=== PATIENT | male | born 1990 ===

== ENCOUNTER 2016-12-22 12:50 | Emergency (ER) | payer BC ==
[2016-12-22 12:54] VITALS: TEMP 98.4; BMI 29.5
[2016-12-22] MEDS ORDERED: SODIUM CHLORIDE 1,000 ML IV ONE (14:15)
[2016-12-22] MEDS ORDERED: SODIUM CHLORIDE 2,000 ML IV ONE (14:28)
[2016-12-22] MEDS ORDERED: KETOROLAC TROMETHAMINE 30 MG/1 ML VIAL IVPUSH ONE (14:28)
[2016-12-22] MEDS ORDERED: INSULIN REGULAR HUMAN 100 UNITS/ML *VIAL SQ ONE (14:28)
[2016-12-22] MEDS ORDERED: KETOROLAC TROMETHAMINE 30 MG/1 ML VIAL ONE (14:51)
--- NOTE | 2016-12-22 14:51 | PDOC ---
History of Present Illness - General History Source: Patient Exam Limitations: No Limitations - History of Present Illness Initial Comments: 12/22/16 14:51 The patient is a 26 year old male, with a significant past medical history of diabetes, who presents to the emergency department with blood sugar elevations and seizure. The patient reports his blood sugar being low this morning and according to the finance the patient had a seizure around 4 am this morning. The patient cannot remember the seizure and reports having a tingling sensation over his body, has had the chills, and sweating profusely since the onset of the seizure. He notes the seizure lasted about 30 seconds. He denies any head trauma. He notes skipping his late night snack after taking his insulin. He denies any changes in his medications. He notes his last seizure was about 15 years ago. He denies any recent fevers, chills, headache or dizziness. He denies any recent nausea, vomit, diarrhea or constipation. He denies any recent dysuria, frequency, urgency or hematuria. He arrives now with high blood sugar that he reports has been constant for the past 5 hours. Allergies: As per Nursing Notes. Past surgical history: None reported. Social History: Nonsmoker. Social EtOH use and denies drug use. <Elias Bustillo - Last Filed: 12/22/16 14:51> <Brody Giron - Last Filed: 12/22/16 16:40> - General Chief Complaint: Blood Sugar Problem Stated Complaint: SEIZURE (HIGH BLOOD SUGAR) Time Seen by Provider: 12/22/16 14:13 Past History <Elias Bustillo - Last Filed: 12/22/16 14:51> - Past Medical History Diabetes: Yes (insulin dependent) Seizures: Yes - Immunization History Immunization Up to Date: Yes - Psycho/Social/Smoking Cessation Hx Anxiety: No Suicidal Ideation: No Smoking Status: No Smoking History: Never smoked Number of Cigarettes Smoked Daily: 0 Hx Alcohol Use: Yes (SOCIAL) Drug/Substance Use Hx: No Substance Use Type: None <Brody Giron - Last Filed: 12/22/16 16:40> - Past Medical History Allergies/Adverse Reactions: Allergies Allergy/AdvReac Type Severity Reaction Status Date / Time meperidine HCl [From Demerol] Allergy Severe Difficulty Verified 12/22/16 12:54 Breathing Home Medications: Ambulatory Orders Insulin Glargine,Hum.rec.anlog [Lantus (10mL VIAL) -] 60 units SQ BID 12/22/16 Insulin Regular [Novolin R Vial -] 0 unit SQ ASDIR 12/22/16 Review of Systems - Review of Systems Constitutional: Yes: Night Sweats (months). No: Chills, Fever Respiratory: No: Cough, Shortness of Breath Cardiac (ROS): No: Chest Pain, Palpitations ABD/GI: No: Diarrhea, Vomiting : Yes: Frequency Neurological: Yes: Tingling. No: Headache All Other Systems: Reviewed and Negative <Brody Giron - Last Filed: 12/22/16 16:40> *Physical Exam - Vital Signs Last Vital Signs Temp Pulse Resp BP Pulse Ox 98.4 F 72 20 128/81 100 12/22/16 12:52 12/22/16 12:52 12/22/16 12:52 12/22/16 12:52 12/22/16 12:52 - Physical Exam Comments: 12/22/16 14:52 GENERAL: The patient is awake, alert, and fully oriented, in no acute distress. HEAD: Normal with no signs of trauma. EYES: Pupils equal, round and reactive to light, extraocular movements intact, sclera anicteric, conjunctiva clear with no pallor. ENT: Ears normal, nares patent, oropharynx clear without exudates. Moist mucous membranes. NECK: Normal range of motion, supple without lymphadenopathy, JVD, or masses. LUNGS: Breath sounds equal, clear to auscultation bilaterally. No wheeze/ crackles. HEART: Regular rate and rhythm, normal S1 and S2 without murmur or rub. ABDOMEN: Soft/nontender/nondistended. BS wnl. No guarding or rebound. No palpable masses. No hepatosplenomegaly. EXTREMITIES: Normal range of motion, no edema. No clubbing or cyanosis. No cords , erythema, or tenderness. NEURO: Mental status: The patient is alert and oriented x3. Cranial nerves: Cranial nerves II through XII are intact Motor: The upper extremities are 5 over 5 in all muscle groups. The lower extremities are 5 over 5 in all muscle groups. No pronator drift. Sensation: Sensation is intact to light touch throughout. Cerebellar: Finger-finger- nose is normal in both upper extremities. Heel-knee- quiles is normal in both lower extremities. Reflexes: 2+ and symmetric in the upper and lower extremities. Gait: Normal. Heel and toe walking are normal. Tandem gait is normal. PSYCH: Normal mood, normal affect. SKIN: Warm, Dry, normal turgor, no rashes or lesions noted. <Elias Bustillo - Last Filed: 12/22/16 14:51> - Vital Signs Last Vital Signs Temp Pulse Resp BP Pulse Ox 98.4 F 72 20 128/81 100 12/22/16 12:52 12/22/16 12:52 12/22/16 12:52 12/22/16 12:52 12/22/16 12:52 <Brody Giron - Last Filed: 12/22/16 16:40> Heart Score/ECG Review #1 ECG reviewed & interpreted by me at: 15:42 General ECG Interpretation: Sinus Rhythm (sinus arrhythmia), Normal Rate (64), Normal Intervals (qtc 416), No acute ischemic changes <Brody Giron - Last Filed: 12/22/16 16:40> ED Treatment Course - LABORATORY CBC & Chemistry Diagram: 12/22/16 14:31 12/22/16 14:31 <Brody Giron - Last Filed: 12/22/16 16:40> Medical Decision Making - Medical Decision Making 12/22/16 14:30 A portion of this note was documented by scribe services under my direction. I have reviewed the details of the note, within reason, and agree with the documentation with the following case summary and management plan written by me. 26-year-old male with history of insulin-dependent diabetes p/w hypoglycemic seizure around 4 AM in the setting of taking his usual nighttime insulin dose but skipping his pre-bedtime meal. Since then, patient took a lower than usual dose of his morning insulin and ate a normal breakfast, but notes elevated glucose in the 280 range. Complaining of general aches and paresthesias, no other focal neurological deficits, no recent fevers or chills reports months of night sweats without weight loss or weight gain. No other infectious complaints. His glucoses typically well-controlled. Vital signs normal. Ill-appearing. Neurologically intact. 26-year-old male with hypoglycemic seizure around 4 AM, now with persistently elevated glucose in the setting of self adjusting his insulin doses. No obvious infectious etiology on history or physical exam, he is otherwise well-appearing and neurologically intact. Check labs, EKG IV fluids, glucose control Reassess 12/22/16 15:46 Labs are within normal limits, no leukocytosis, glucose now down to 170, CK normal and troponin negative. Urinalysis clear. 12/22/16 15:54 Feeling much better, tolerating PO. Will complete IV fluid hydration, plan for d /c and restarting his usual regimen. <Brody Giron - Last Filed: 12/22/16 16:40> *DC/Admit/Observation/Transfer - Attestations Scribe Attestion: 12/22/16 14:52 Documentation prepared by Elias Bustillo, acting as medical psychotherapist for Brody Giron MD. <Elias Bustillo - Last Filed: 12/22/16 14:51> <Brody Giron - Last Filed: 12/22/16 16:40> Diagnosis at time of Disposition: Hypoglycemia due to insulin, Seizure - Discharge Dispostion Disposition: HOME Condition at time of disposition: Improved - Referrals Referrals: Kamran Rubalcava [Other] - Patient Instructions Printed Discharge Instructions: DI for Hypoglycemia Additional Instructions: Activity as tolerated. Stay hydrated. Blood tests today showed no acute abnormalities. As we discussed, your seizure was likely secondary to low blood sugar from skipping your nighttime snack. Restart your insulin dosing as previously prescribed, continue your usual diet plan. Continue your medications as previously prescribed by your physician. You should follow up with your casting carrier as soon as possible regarding today's emergency department visit. Return to the emergency department for any new or concerning symptoms, particularly difficult to control glucose levels, confusion or severe body aches , fevers or chills. - Post Discharge Activity Work/School Note: Back to Work, Parent(s) Back to Work Note
[2016-12-22] MEDS ORDERED: INSULIN (NOVOLOG) ASPART 100 UNITS/ML 10ML VIAL ONE (14:52)
[2016-12-22 15:19] LABS: URINE APPEARANCE CLEAR; URINE BILIRUBIN NEGATIVE (NEGATIVE); URINE BLOOD NEGATIVE (NEGATIVE); URINE COLOR LTYELLOW; URINE GLUCOSE (UA) 2+ (NEGATIVE); URINE KETONE NEGATIVE (NEGATIVE); URINE LEUK ESTERASE NEGATIVE (NEGATIVE); URINE NITRITE NEGATIVE (NEGATIVE); URINE PROTEIN NEGATIVE (NEGATIVE); URINE UROBILINOGEN NEGATIVE E.U./dl (0.2-1.0)
[2016-12-22 15:21] LABS: BASOPHIL 0.3 % (0-2.0); EOSINOPHIL 2.7 % (0-4.5); MCH 30.3 pg (25.7-33.7); MEAN PLT VOLUME 9.6 fl (7.5-11.1); NEUTROPHILS 57.2 % (42.8-82.8); PLATELET COUNT 237 K/MM3 (134-434); RDW 13.2 % (11.9-15.9); WHITE BLOOD COUNT 8.6 K/mm3 (4.0-10.0)
[2016-12-22 15:29] LABS: ALBUMIN 3.8 g/dl (3.4-5.0); ANION GAP 7 (8-16); BILIRUBIN,TOTAL 0.4 mg/dL (0.2-1.0); CALCIUM 8.8 mg/dL (8.5-10.1); CO2 32 mmol/L (21-32); CREATININE 0.9 mg/dL (0.7-1.3); GLUCOSE,RANDOM 170 mg/dL (74-106); SGOT/AST 11 U/L (15-37); SGPT/ALT 20 U/L (12-78)
[2016-12-22 15:31] LABS: ALK PHOS 66 U/L (45-117); TROPONIN I < 0.02 ng/ml (0.00-0.05)
[2016-12-22 15:33] LABS: INR 1.05 (0.82-1.09); PROTHROMBIN TIME (PATIENT) 11.6 SEC (9.98-11.88)
[2016-12-22 16:54] VITALS: BP 125/72; PULSE 74
--- NOTE | 2016-12-23 17:10 | EKG ---
Test Reason : Blood Pressure : / mmHG Vent. Rate : 064 BPM Atrial Rate : 064 BPM P-R Int : 164 ms QRS Dur : 086 ms QT Int : 404 ms P-R-T Axes : 021 090 025 degrees QTc Int : 416 ms NORMAL SINUS RHYTHM WITH SINUS ARRHYTHMIA RIGHTWARD AXIS NONSPECIFIC ST ABNORMALITY ABNORMAL ECG NO PREVIOUS ECGS AVAILABLE Confirmed by ASTER ACUNA MD ([id number]) on 12/23/2016 5:09:35 PM Referred By: Confirmed By:ASTER ACUNA MD
== END 2016-12-22 16:54 | disposition home or self-care (01) ==
LOC: JER 12:50
PROC: 3E013VG Introduction of Insulin into Subcutaneous Tissue, Percutaneous Approach (ICD-10-PCS; principal; 2016-12-22)
PROC: 3E0337Z Introduction of Electrolytic and Water Balance Substance into Peripheral Vein, Percutaneous Approach (ICD-10-PCS; 2016-12-22)
DX: E09.649 Drug or chemical induced diabetes mellitus with hypoglycemia without coma (principal); Z79.4 Long term (current) use of insulin; R56.9 Unspecified convulsions
CPT/HCPCS: 36415; 80053; 81003; 82009; 82550; 82553; 84484; 85025; 85610; 93005; 93010; 99284-25